=== PATIENT | female | born 1965 | race Caucasian/White ===

== ENCOUNTER 2019-01-18 18:40 | Emergency (ER) | payer BC ==
--- NOTE | 2019-01-18 18:48 | EDM.PDOC ---
ED HPI GENERAL MEDICAL PROBLEM - General Chief Complaint: Flank Pain Stated Complaint: left flank/back pain Time Seen by Provider: 01/18/19 18:40 Source of Information: Reports: Patient, Family (). Denies: Old Records (No [facility] records available) History Limitations: Reports: No Limitations - History of Present Illness INITIAL COMMENTS - FREE TEXT/NARRATIVE: The patient was brought to the emergency room via private automobile by her for evaluation of 10/10 left lateral chest wall/rib pain with no history of excessive activity, trauma, local injury, etc. Symptoms have been refractory to 1 tablet of Aleve at 07:30 hours this morning and 400 mg of Advil at 13:00 hours this afternoon. Note that the patient did wake up with the symptoms at 3 AM. The patient denies any other chest pain/pressure, heart flutter, dizziness, orthostasis, orthopnea, diaphoresis, paresthesias, recent decreased exercise tolerance, or any other anginal-type symptoms. No recent history of abdominal pain, heartburn, nausea, diarrhea, melena, gross hematochezia, or any food intolerance, including fatty foods, etc.. She denies any history of colic, gross hematuria, or other UTI symptoms. The patient also denies any recent fever, cough, wheezing, dyspnea, etc.. Onset: Today, Sudden Onset Date: 01/18/19 Onset Time: 03:00 Duration: Constant, Getting Worse Location: Reports: Chest (Chest wall as above). Denies: Head, Face, Neck, Abdomen, Back, Pelvis, Upper Extremity, Left, Upper Extremity, Right, Radiates to Quality: Reports: Same as Previous Episode, Stabbing Severity: Severe Improves with: Reports: None Worsens with: Reports: None Context: Reports: Other (As above). 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 Denies: Fracture, Gout, RA, SLE Social & Family History - Family History Musculoskeletal: Reports: Arthritis, Osteoarthritis, RA, Other (See Below) Other Musculoskeletal Family History: Multiple family members with rheumatoid arthritis including father, paternal and maternal grandparents, and 3 sisters. - Tobacco Use Smoking Status *Q: Former Smoker Tobacco Use Within Last Twelve Months: Cigarettes Years of Tobacco use: 39 Packs/Tins Daily: 1 Packs/Tins Daily Comment: Stopped Smoking in March 2018. - Living Situation & Occupation Living situation: Reports: , with Family ED ROS GENERAL - Review of Systems Review Of Systems: ROS reveals no pertinent complaints other than HPI. ED EXAM, GENERAL - Physical Exam Exam: See Below Exam Limited By: No Limitations General Appearance: Alert, WD/WN, No Apparent Distress Head: Atraumatic, Normocephalic Neck: Normal Inspection, Supple, Non-Tender, Full Range of Motion. No: Lymphadenopathy (L), Lymphadenopathy (R), Thyromegaly Respiratory/Chest: No Respiratory Distress, Lungs Clear, Normal Breath Sounds, No Accessory Muscle Use, Chest Non-Tender. No: Pleural Rub, Retractions Cardiovascular: Normal Peripheral Pulses, Regular Rate, Rhythm, No Edema, No Gallop, No JVD, No Murmur, No Rub. No: Gallop/S3, Gallop/S4, Friction Rub Peripheral Pulses: 2+: Radial (L), Radial (R) GI/Abdominal: Normal Bowel Sounds, Soft, Non-Tender, No Organomegaly, No Distention, No Abnormal Bruit, No Mass. No: Guarding (Female) Exam: Deferred Rectal (Female) Exam: Deferred Back Exam: Decreased Range of Motion (Lower left lateral thoracic region with spasm in this area with extension mostly in the lower left lateral rib area. No rubs, ecchymosis, swelling, etc.), Muscle Spasm Extremities: Normal Inspection, Normal Range of Motion, Non-Tender, No Pedal Edema, Normal Capillary Refill. No: Beatris's Sign Neurological: Alert, Oriented, CN II-XII Intact, Normal Cognition, Normal Gait, No Motor/Sensory Deficits Psychiatric: Normal Affect, Normal Mood Skin Exam: Warm, Dry, Intact, Normal Color, No Rash. No: Diaphoretic, Ecchymosis, Petechiae, Wound/Incision Lymphatic: No Adenopathy Course - Vital Signs Last Recorded V/S: Last Vital Signs Temp 37.1 C 01/18/19 18:51 Pulse 89 01/18/19 18:51 Resp 16 01/18/19 18:51 BP 112/79 01/18/19 18:51 Pulse Ox 98 01/18/19 18:51 Vital Signs - 24 hr 01/18/19 18:51 Temperature [ 37.1 C Oral] Pulse, 89 Peripheral [ Left Pulse Oximetry] Respiratory 16 Rate Blood Pressure 112/79 [Left Upper Arm ] O2 Sat by Pulse 98 Oximetry - Orders/Labs/Meds Orders: Active Orders 24 hr Category Date Time Status Chest 2V [CR] Urgent Exams 01/18/19 18:49 Taken Obtain Past Medical Record [OM.PC] Routine Oth 01/18/19 18:48 Active Labs: None Meds: Medications Discontinued Medications Generic Name Dose Route Start Last Admin Trade Name Freq PRN Reason Stop Dose Admin Methylprednisolone Acetate 80 mg 01/18/19 19:08 01/18/19 19:27 Depo-Medrol IM 01/18/19 19:09 80 mg ONETIME ONE Administration - Radiology Interpretation Free Text/Narrative:: Chest x-ray, PA and lateral, shows evidence of mild pulmonary obstructive changes with no cardiomegaly, CHF, pulmonary infiltrates, pneumothorax, etc. Mild osteoarthritic changes noted in the thoracic spine. No evidence of rib fracture, etc. Departure - Departure Time of Disposition: 19:35 Disposition: Home, Self-Care 01 Condition: Good Clinical Impression: Muscle strain Osteoarthritis Qualifiers: Osteoarthritis location: multiple joints Osteoarthritis type: primary Qualified Code(s): M15.0 - Primary generalized (osteo)arthritis - Discharge Information *PRESCRIPTION DRUG MONITORING PROGRAM REVIEWED*: Not Applicable *COPY OF PRESCRIPTION DRUG MONITORING REPORT IN PATIENT ROBERTA: Not Applicable Prescriptions: Cyclobenzaprine [Flexeril] 10 mg PO TID PRN #30 tab PRN Reason: Muscle Spasm Instructions: Muscle Strain, [id number] Referrals: Iggy Mcpherson PA [Primary Care Provider] - Forms: ED Department Discharge Additional Instructions: 1. Follow up with your regular provider in 10-14 days as needed, if symptoms persist. Bring these discharge instructions with you to that visit.. 2. Tylenol 650 mg by mouth every 4 hours and/or OTC ibuprofen 2-3 tabs by mouth every 6 hours with food as directed./needed. You may stagger these medications for 48-72 hours only, which essentially means that you are receiving a pain medication about every 2 hours. 3. BenGay or equivalent, heating pad, and/or ice packs as directed. 4. Sedation precautions with Flexeril as discussed. 5. Congratulations about stopping smoking 6. Immediately after this visit verify that your cellular telephone's voicemail has been activated and is empty. Also verify that your home telephone 's answering machine is operating properly and has space to receive messages. Note that it is sometimes necessary for us to be able to contact you at a later date to discuss your medical care. 7. Please remember that we are ALWAYS here for you and want to answer any questions you may have. Feel free to call the hospital any time and we call you back [facility]UREL[facility] 8. Never take concomitant NSAIDs at the same time such as Aleve and ibuprofen as discussed. - Problem List & Annotations (1) Muscle strain SNOMED Code(s): 11007474 Code(s): T14.8XXA - OTHER INJURY OF UNSPECIFIED BODY REGION, INITIAL ENCOUNTER Status: Acute Priority: High Onset Date: 01/18/19 Annotation/ Comment:: Symptomatic treatment as per discharge instructions. Patient did not wish to have an IM Toradol injection. IM Solu-Medrol given as above. (2) Osteoarthritis SNOMED Code(s): 743119428 Code(s): M19.90 - UNSPECIFIED OSTEOARTHRITIS, UNSPECIFIED SITE Status: Acute Priority: High Annotation/Comment:: Otherwise stable by history Qualifiers: Osteoarthritis location: multiple joints Osteoarthritis type: primary Qualified Code(s): M15.0 - Primary generalized (osteo)arthritis - Problem List Review Problem List Initiated/Reviewed/Updated: Yes - My Orders Last 24 Hours: My Active Orders 01/18/19 18:48 Obtain Past Medical Record [OM.PC] Routine 01/18/19 18:49 Chest 2V [CR] Urgent - Assessment/Plan Last 24 Hours: My Active Orders 01/18/19 18:48 Obtain Past Medical Record [OM.PC] Routine 01/18/19 18:49 Chest 2V [CR] Urgent Assessment:: As above Plan: As above. Extensive precautions were given to the patient, who is in agreement with the treatment plan. See Patient Instructions for further treatment and plan.
[2019-01-18] MEDS ORDERED: methylPREDNISolone Acetate 80 MG/ML SDV IM ONE (19:08)
== END 2019-01-18 19:40 | disposition home or self-care (01) ==
LOC: LL.ED 18:40
DX: S29.012A Strain of muscle and tendon of back wall of thorax, initial encounter (principal); M15.0 Primary generalized (osteo)arthritis; Z87.891 Personal history of nicotine dependence; Z91.048 Other nonmedicinal substance allergy status
CPT/HCPCS: 71046; 96372; 99284; J1040

== ENCOUNTER 2021-01-15 10:28 | Emergency (ER) | payer BC ==
[2021-01-15] MEDS ORDERED: Morphine 4 MG/ML Syringe IVPUSH ONE ×2 (10:50→12:14)
[2021-01-15] MEDS ORDERED: Ondansetron 4 MG/2 ML SDV IVPUSH ONE (10:51)
[2021-01-15] MEDS: Sodium Chloride 0.9% 10 ML Syringe FLUSH PRN ×2 (11:05→12:31)
[2021-01-15] MEDS ORDERED: Bupivacaine 0.5% 10 ML SDV INJECT ONE (11:22)
--- NOTE | 2021-01-15 12:19 | EDM.PDOC ---
ED HPI GENERAL MEDICAL PROBLEM - General Chief Complaint: Lower Extremity Injury/Pain Stated Complaint: fall, right ankle injury Time Seen by Provider: 01/15/21 10:42 Source of Information: Reports: Patient History Limitations: Reports: No Limitations - History of Present Illness INITIAL COMMENTS - FREE TEXT/NARRATIVE: Patient injured right ankle after slipping out of a bucket while trying to pull fascia boards off of roof of family home. Landed on feet. Said she would have been fine but there was a small trench dug to help drain water and her right foot landed on edge of the trench/rolling ankle. Knows ankle is broken. Denies other injuries. 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 - Tobacco Use Tobacco Use Status *Q: Former Tobacco User Used Tobacco, but Quit: Yes Month/Year Tobacco Last Used: Quit 3 years ago - Caffeine Use Caffeine Use: Reports: Coffee - Alcohol Use Days Per Week of Alcohol Use: 7 Number of Drinks Per Day: 1 Total Drinks Per Week: 7 - Recreational Drug Use Recreational Drug Use: No - Living Situation & Occupation Living situation: Reports: , with Family Review of Systems - Review of Systems Review Of Systems: See Below Constitutional: Reports: No Symptoms Eyes: Reports: No Symptoms Ears: Reports: No Symptoms Nose: Reports: No Symptoms Mouth/Throat: Reports: No Symptoms Respiratory: Reports: No Symptoms Cardiovascular: Reports: No Symptoms GI/Abdominal: Reports: No Symptoms Genitourinary: Reports: No Symptoms Musculoskeletal: Reports: Joint Swelling, Other (right ankle pain) Skin: Reports: Bruising (right ankle). Denies: Wound Neurological: Reports: No Symptoms. Denies: Numbness, Tingling Psychiatric: Reports: No Symptoms ED EXAM, GENERAL - Physical Exam Exam: See Below Exam Limited By: No Limitations General Appearance: Alert, WD/WN, Moderate Distress Eye Exam: Bilateral Eye: EOMI, PERRL Ears: Normal External Exam, Normal Canal, Hearing Grossly Normal Nose: No: Nasal Deformity, Nasal Swelling, Nasal Drainage Throat/Mouth: Normal Lips, Normal Voice, No Airway Compromise Head: Atraumatic, Normocephalic Neck: Supple, Non-Tender, Full Range of Motion Respiratory/Chest: No Respiratory Distress, Lungs Clear, Normal Breath Sounds, Chest Non-Tender Cardiovascular: Normal Peripheral Pulses, Regular Rate, Rhythm, No Murmur Peripheral Pulses: 2+: Dorsalis Pedis (R) GI/Abdominal: Soft, Non-Tender, Pelvis Stable (Female) Exam: Deferred Rectal (Female) Exam: Deferred Back Exam: No: Muscle Spasm, Paraspinal Tenderness, Vertebral Tenderness Extremities: Normal Capillary Refill, Limited Range of Motion (right ankle). No: Increased Warmth, Mottled, Pallor, Redness Neurological: Alert, Oriented, Normal Cognition, Other (sensation intact) Psychiatric: Normal Affect, Normal Mood Skin Exam: Warm, Dry, Ecchymosis (right ankle) ED TRAUMA EXTREMITY PROCEDURES - Splinting Right Lower Extremity Splint Site: right ankle/lower leg Pre-Procedure NV Status: Normal Post-Procedure NV Status: Normal Splint Material: Fiberglass Splint Design: Posterior Applied & Form Fitted By: Provider Provider Post-Splint Application NV Check: NV Status Normal, Good Position Complications: No Course - Vital Signs Last Recorded V/S: Last Vital Signs Temp 36.6 C 01/15/21 10:34 Pulse 74 01/15/21 10:34 Resp 18 01/15/21 10:34 BP 153/94 H 01/15/21 10:34 Pulse Ox 99 01/15/21 10:34 - Orders/Labs/Meds Orders: Active Orders 24 hr Category Date Time Status Ankle Min 3V Rt [CR] Stat Exams 01/15/21 10:29 Taken Sodium Chloride 0.9% [Saline Flush] Med 01/15/21 10:29 Active 10 ml FLUSH ASDIRECTED PRN Saline Lock Insert [OM.PC] Routine Oth 01/15/21 10:29 Ordered Medication Orders Sodium Chloride (Sodium Chloride 0.9% 10 Ml Syringe) 10 ml FLUSH ASDIRECTED PRN PRN Reason: Keep Vein Open Meds: Medications Generic Name Dose Route Start Last Admin Trade Name Freq PRN Reason Stop Dose Admin Sodium Chloride 10 ml 01/15/21 10:29 Sodium Chloride 0.9% 10 Ml Syringe FLUSH ASDIRECTED PRN Keep Vein Open Discontinued Medications Generic Name Dose Route Start Last Admin Trade Name Freq PRN Reason Stop Dose Admin Bupivacaine HCl 10 ml 01/15/21 11:22 01/15/21 11:44 Bupivacaine 0.5% 10 Ml Sdv INJECT 01/15/21 11:23 10 ml ONETIME ONE Administration Lidocaine HCl 5 ml 01/15/21 11:22 01/15/21 11:44 Lidocaine 1% 5 Ml Sdv INJECT 01/15/21 11:23 5 ml ONETIME ONE Administration Morphine Sulfate 4 mg 01/15/21 10:50 01/15/21 11:05 Morphine 4 Mg/Ml Syringe IVPUSH 01/15/21 10:51 4 mg ONETIME ONE Administration Ondansetron HCl 4 mg 01/15/21 10:51 01/15/21 11:05 Ondansetron 4 Mg/2 Ml Sdv IVPUSH 01/15/21 10:52 4 mg ONETIME ONE Administration - Re-Assessments/Exams Free Text/Narrative Re-Assessment/Exam: 01/15/21 12:21 Xray confirmed distal tib/fib fracture and disruption of ankle mortise. Pain improved with IV MS. Marcaine 0.5% 10ml mixed with Lidocaine 1% 5ml and injected into fracture area medially and laterally to help with pain control. from [facility] and /Hospitalist accepted patient for transfer to [facility] for further treatment. Posterior splint fabricated to stabilize fracture during transport. Patient will go by private vehicle. She is NPO in anticipation for surgical intervention later today. Departure - Departure Time of Disposition: 12:25 Disposition: DC/Tfer to Acute Hospital 02 Condition: Good Clinical Impression: Fracture of tibia with fibula, right, closed Qualifiers: Encounter type: initial encounter Qualified Code(s): S82.201A - Unspecified fracture of shaft of right tibia, initial encounter for closed fracture; S82.401A - Unspecified fracture of shaft of right fibula, initial encounter for closed fracture - Discharge Information Referrals: Iggy Mcpherson PA [Primary Care Provider] - Sepsis Event Note (ED) - Evaluation Sepsis Screening Result: No Definite Risk - Focused Exam Vital Signs: Vital Signs Temp Pulse Resp BP Pulse Ox 01/15/21 10:34 36.6 C 74 18 153/94 H 99 - My Orders Last 24 Hours: My Active Orders 01/15/21 10:29 Ankle Min 3V Rt [CR] Stat Sodium Chloride 0.9% [Saline Flush] 10 ml FLUSH ASDIRECTED PRN Saline Lock Insert [OM.PC] Routine - Assessment/Plan Last 24 Hours: My Active Orders 01/15/21 10:29 Ankle Min 3V Rt [CR] Stat Sodium Chloride 0.9% [Saline Flush] 10 ml FLUSH ASDIRECTED PRN Saline Lock Insert [OM.PC] Routine
== END 2021-01-15 13:00 ==
LOC: LL.ED 10:28
DX: S82.291A Other fracture of shaft of right tibia, initial encounter for closed fracture (principal); S82.491A Other fracture of shaft of right fibula, initial encounter for closed fracture; Z91.048 Other nonmedicinal substance allergy status; Z87.891 Personal history of nicotine dependence; W01.0XXA Fall on same level from slipping, tripping and stumbling without subsequent striking against object, initial encounter
CPT/HCPCS: 29515; 64450; 73610-RT; 96374; 96375; 96376; 99283; 99283-25; J2270; J2405; J3490